=== PATIENT | female | born 1955 | race Caucasian/White ===

== ENCOUNTER 2017-08-05 19:24 | Emergency (ER) | payer BC, OTHER ==
[~2017-08-05 19:24] MED LIST: FLUO40CA8 PO; ONDA4TAB7 SL
[2017-08-05 19:31] VITALS: TEMP 36.5; Ht 167.6 cm
--- NOTE | 2017-08-05 20:13 | EMERGENCY ROOM VISIT NOTE ---
History Report prepared by Khanh: Thuy Hunter Under the Supervision of: Dr. Ventura Clemens M.D. First contact with patient: 19:58 Chief Complaint: LEG PAIN,LEG INJURY Stated Complaint: L UPPER LEG PAIN History of Present Illness The patient is a 62 year old female who presents to the Emergency Room with complaints of left upper leg pain beginning 2 days ago. She rates her pain at an 8/10, and reports having a history of sciatica. The patient reports that she has had a cold and cough for 2 days, and was given medication for inflammation. She states that she did some heavy lifting 2 days ago and reports that she is an active person. She states that sitting up exacerbates the pain. The patient reports taking 2 ibuprofen about 5 hours prior to arrival for her pain The patient denies urinary symptoms, diarrhea, weakness in her legs, fevers, chills , and incontinence. The patient denies a history of ulcers, gastritis, and kidney problems. Source of History: patient Onset: 2 days ago Position: leg (left) Symptom Intensity: rated at an 8/10 Modifying Factors (Worsening): other (sitting up ) Associated Symptoms: + cough, No fevers, No chills, No diarrhea, No urinary symptoms, No weakness Review of Systems See HPI for pertinent positives and negatives. A total of ten systems were reviewed and were otherwise negative. Past Medical & Surgical Medical Problems: (1) Depression Family History No pertinent family history Social History Smoking Status: Former Smoker Drug Use: none Marital Status: Housing Status: lives with family Occupation Status: employed Current/Historical Medications Scheduled Amitriptyline Hcl (Elavil), Unknown Dose PO HS Amoxicillin (Amoxil), 1 CAP PO TID Citalopram Hydrobromide (Celexa), 20 MG PO DAILY Prednisone Tab (Prednisone), Unknown Dose PO BID Scheduled PRN Benzonatate (Tessalon Perles), 100 MG PO BID PRN for Cough Diazepam (Diazepam), 1 TAB PO QID PRN for Muscle Spasms Ibuprofen Tab (Motrin), 800 MG PO Q8H PRN for Pain Allergies Coded Allergies: No Known Allergies (Unverified , 08/05/17) Physical Exam Vital Signs Date Time Temp Pulse Resp B/P (MAP) Pulse Ox O2 Delivery O2 Flow Rate FiO2 08/06/17 00:52 67 17 156/75 93 Room Air 08/05/17 23:49 73 18 135/79 95 Room Air 08/05/17 22:49 72 18 125/70 94 Room Air 08/05/17 22:09 65 20 159/79 97 Room Air 08/05/17 20:43 63 18 159/88 96 Room Air 08/05/17 19:31 36.5 71 18 164/97 99 Room Air Physical Exam GENERAL: Awake, alert, uncomfortable-appearing, no acute distress HENT: Normocephalic, atraumatic. Oropharynx unremarkable. EYES: Normal conjunctiva. Sclera non-icteric. NECK: Supple. No nuchal rigidity. FROM. No JVD. RESPIRATORY: Clear to auscultation. CARDIAC: Regular rate, normal rhythm. Extremities warm and well perfused. Pulses equal. ABDOMEN: Soft, non-distended. No tenderness to palpation. No rebound or guarding. No masses. RECTAL: Deferred. MUSCULOSKELETAL: Tenderness to palpation in left lumbar region with tenderness in the sciatic distribution extending distally. Positive left straight leg raise. Chest examination reveals no tenderness. The back is symmetrical on inspection without obvious abnormality. There is no CVA tenderness to palpation. No joint edema. LOWER EXTREMITIES: Calves are equal size bilaterally and non-tender. No edema. No discoloration. NEURO: 5 strength. Sensation intact in all extremities. Normal sensorium. No sensory or motor deficits noted. SKIN: No rash or jaundice noted. Medical Decision & Procedures ER Provider Diagnostic Interpretation: STATRAD: Preliminary Findings Only See Final Report For Complete Findings MRI L SPINE : No fracture L2-3: Broad-based left far lateral disc protrusion impinging upon the exiting L2 nerve root. L3-4: Disc bulge without neural impingement. L4-5: Broad-based left far lateral disc protrusion impinging upon the exiting L4 nerve root L5-S1: Disc bulge and facet arthropathy resulting in minimal right neural foraminal stenosis Radiologist: Royer Das M.D. Medications Administered Medications (Trade) Dose Ordered Sig/Irene Route Start Time Stop Time Status Last Admin Dose Admin Sodium Chloride 1,000 ml @ 999 mls/hr Q1H1M STAT IV 08/05/17 20:15 08/05/17 21:15 DC 08/05/17 20:43 999 MLS/HR Ketorolac Tromethamine (Toradol Inj) 30 mg NOW STAT IV 08/05/17 20:15 08/05/17 20:19 DC 08/05/17 20:38 30 MG Diazepam (Valium Tab) 5 mg NOW STAT PO 08/05/17 20:15 08/05/17 20:19 DC 08/05/17 20:37 5 MG Oxycodone/ Acetaminophen (Percocet 5-325mg Tab) 1 tab NOW ONCE PO 08/05/17 21:45 08/05/17 21:46 DC 08/05/17 22:04 1 TAB Dexamethasone Sodium Phosphate (Decadron Inj) 10 mg NOW ONCE IV 08/05/17 22:00 08/05/17 22:01 DC 08/05/17 22:04 10 MG Lorazepam (Ativan Inj) 1 mg NOW STAT IV 08/05/17 22:40 08/05/17 22:41 DC 08/05/17 22:47 1 MG Ondansetron HCl (Zofran Inj) 4 mg NOW STAT IV 08/05/17 23:55 08/05/17 23:56 DC 08/05/17 23:58 4 MG Diazepam (Valium Tab) 5 mg NOW ONCE PO 08/06/17 00:45 08/06/17 00:46 DC 08/06/17 00:56 5 MG Ibuprofen (Motrin Tab) 800 mg NOW STAT PO 08/06/17 00:41 08/06/17 00:45 DC 08/06/17 00:56 800 MG ED Course 2005: The patient was evaluated in room B7. A complete history and physical exam was performed. 2015: Ordered Diazepam 5 mg PO, Toradol Inj 30 mg IV, and Sodium Chloride 1,000 ml @ 999 mls/hr IV. 5: Ordered Oxycodone/Acetaminophen 1 tab PO. 0: Ordered Decadron Inj 10 mg IV, Lorazepam 1 mg IV. 2230: The patient states that she is still in pain so I am ordering an MRI and IV Valium. 2240: Ordered Lorazepam 1 mg IV. 2355: Ordered Ondansetron HCl 4 mg IV. 0041: Ordered Ibuprofen 800 mg PO. 0045: Ordered Diazepam 5 mg PO. 0050: I reevaluated the patient. Discussed results and discharge instructions: She verbalized understanding and agreement. The patient is ready for discharge. Medical Decision I reviewed the patient's past medical history, medications, and the nursing notes as described above. Differentials include: lumbar/sacral radiculopathy, musculoskeletal strain, and fracture. The patient is a 62-year-old woman with a past medical history of sciatica who presents emergency Department with worsening left lower back pain with radiation to the leg consistent with her prior sciatica but worse per history of present illness. Denies urinary retention or bowel incontinence. Arrives uncomfortable but in no acute distress, afebrile with stable vital signs. Exam the patient has mild tenderness in the lower lumbar region with pain in the sciatic distribution distally. Positive straight leg raise on left. Otherwise pulse motor 5/5, SILT distally. Initially, discussed with patient plan for supportive care and unlikely added benefit for MRI at this time given patient's symptoms are clearly consistent with sciatica and patient has no concerning signs or symptoms of cord compression. She agreeable to proceed with symptomatic control and further imaging. However patient was given several rounds of analgesia with apparent no effect. Thus we will give additional medications and further evaluate with MRI of the L-spine. MRI shows lumbar spine disc disease. In particular the patient has "broad- based left far lateral disc protrusion impinging upon the exiting L4 nerve root " system with the patient's severe symptoms. No cord compression. On reevaluation, she felt significant improvement in her pain was able to stand and walk to the bathroom. Findings and plan for follow-up d/w patient. Patient agreeable and d/c'd per discharge instructions. Medication Reconcilliation Current Medication List: was personally reviewed by me Blood Pressure Screening Patient's blood pressure: Elevated blood pressure Blood pressure disposition: Elevated BP felt to be situational Impression Primary Impression: Lumbar radiculopathy, acute Scribe Attestation The scribe's documentation has been prepared under my direction and personally reviewed by me in its entirety. I confirm that the note above accurately reflects all work, treatment, procedures, and medical decision making performed by me. Departure Information Dispostion Home / Self-Care Prescriptions Diazepam (Diazepam) 5 Mg Tab 1 TAB PO QID Y for Muscle Spasms, #5 TABS Prov: Ventura Clemens M.D. 08/06/17 Ibuprofen Tab (MOTRIN) 800 Mg Tab 800 MG PO Q8H Y for Pain for 14 Days, #42 TAB Prov: Ventura Clemens M.D. 08/06/17 Referrals No Doctor, Assigned (PCP) Forms HOME CARE DOCUMENTATION FORM, IMPORTANT VISIT INFORMATION Patient Instructions Lumbar Radiculopathy, My [facility] Additional Instructions Please follow up with your primary care physician in the next 1-3 days for re- evaluation as well as with the spine clinic for further treatment if needed. You have sciatica due to nerve impingement from a herniated disc. Otherwise, your exam and MRI did not show signs of an emergent condition at this time. Take ibuprofen for pain as directed. Continue your prednisone as prescribed. Take Valium for muscle relaxation for additional pain relief as needed. Apply heating pad at twenty minute intervals throughout the day for muscle relaxation and pain relief. Return to the emergency department for worsening symptoms as described in the accompanying instructions.
[2017-08-05] MEDS ORDERED: SODIUM CHLORIDE 0.9% 1000ML 1,000 ML IV STA (20:15)
[2017-08-05] MEDS ORDERED: KETOROLAC TROMETHAMINE 30 MG/ML VIAL IV STA (20:15)
[2017-08-05] MEDS ORDERED: DIAZEPAM 5MG TAB PO STA (20:15)
[2017-08-05] MEDS ORDERED: CITA20TA9 PO (21:13)
[2017-08-05] MEDS ORDERED: AMT50 PO (21:13)
[2017-08-05] MEDS ORDERED: PRED10TA PO (21:13)
[2017-08-05] MEDS ORDERED: AMOX500C3 PO (21:13)
[2017-08-05] MEDS ORDERED: BENZ100C84 PO (21:13)
[2017-08-05] MEDS ORDERED: OXYCODONE/ACETAMINOPHEN 5-325 TAB PO ONE (21:45)
[2017-08-05] MEDS ORDERED: DEXAMETHASONE SOD INJ 10 MG/ML VIAL IV ONE (22:00)
[2017-08-05] MEDS ORDERED: LORAZEPAM 2 MG/ML 1 ML VIAL IV STA (22:40)
[2017-08-05] MEDS ORDERED: ONDANSETRON INJ 2 MG/ML 2 ML VIAL IV STA (23:55)
[2017-08-06] MEDS ORDERED: IBUP-1451 PO (00:38)
[2017-08-06] MEDS ORDERED: VLM5CL PO (00:38)
[2017-08-06] MEDS ORDERED: IBUPROFEN 800 MG TAB PO STA (00:41)
[2017-08-06] MEDS ORDERED: DIAZEPAM 5MG TAB PO ONE (00:45)
[2017-08-06] MEDS ORDERED: EMPTY 8 DRAM VIAL ONE (00:51)
[2017-08-06 00:52] VITALS: BP 156/75; PULSE 67; O2SAT 93
--- NOTE | 2017-08-06 05:33 | DIAGNOSTIC IMAGING REPORT ---
LUMBAR SPINE W/O CONTRAST CLINICAL HISTORY: 62 years-old Female presenting with sciatica for a few days, unable to sit without having extreme pain, no numbness or known injury. TECHNIQUE: Multisequence, multiplanar MR imaging of the lumbar spine was performed without the use of intravenous contrast. IV contrast: None. COMPARISON: CT from 10/27/2014. FINDINGS: Localizer images: Distended bladder. Left renal cyst. Straightening of normal lumbar lordosis area vertebral bodies maintain normal height and alignment. Mild eccentric endplate edema noted at L4-5 on the left and L5-S1 on the right. Bone marrow signal intensity otherwise normal. Mild intervertebral disc height loss at L4-5. Mild multilevel degenerative change detailed below: L1-2: Right lateral disc protrusion with mild right neural foraminal narrowing. No spinal canal narrowing. L2-3: Left lateral disc protrusion with mild left neural foraminal narrowing. This may abut the exiting left L2 nerve root. L3-4: Normal. L4-5: Mild disc bulge with more focal bulging along the left neural foramen. This abuts the exiting left L4 nerve root. No spinal canal narrowing. L5-S1: Mild disc bulge with more focal bulging along the right neural foramen. This abuts the exiting right L5 nerve root. Mild right neural foraminal narrowing. No spinal canal narrowing. Spinal cord ends in good position at the superior endplate of L1. Cauda equina normal. No paraspinal edema. IMPRESSION: 1. Mild multilevel degenerative change. Several levels demonstrate disc protrusions or disc bulges with lateral components resulting in abutment of the exiting nerve roots as detailed above. Electronically signed by: Elvin Downs M.D. 08/06/2017 5:32 AM Dictated Date/Time: 08/06/2017 5:25 AM
== END 2017-08-06 01:13 | disposition home or self-care (01) ==
LOC: EDBD 19:24 → C.EDB 19:25
DX: M54.16 Radiculopathy, lumbar region (principal); R05 Cough; F32.9 Major depressive disorder, single episode, unspecified; Z79.899 Other long term (current) drug therapy; Z87.891 Personal history of nicotine dependence